=== PATIENT | female | born 1975 | race Two or more races ===

== ENCOUNTER 2025-06-29 16:14 | Emergency (ER) | payer OTHER ==
[~2025-06-29] VITALS: Ht 160 cm; Wt 71.7 kg
[2025-06-29 17:47] VITALS: BP 118/79; O2SAT 99
[2025-06-29] MEDS ORDERED: CEFTRIAXONE SODIUM 1,000 MG VIAL IM ONE (18:30)
[2025-06-29] MEDS ORDERED: CETIRIZINE HCL 5 MG/5 ML ML PO ONE (18:30)
[2025-06-29] MEDS ORDERED: CEFTRIAXONE SODIUM 1,000 MG VIAL ONE (19:12)
[2025-06-29] MEDS ORDERED: CETIRIZINE HCL 5MG/5ML BLIST.PACK PO ONE (19:12)
[2025-06-29 19:34] LABS: BASO % 0.7 % (0.1-1.2); EOS # 0.01 (0.04-0.54); EOS % 0.2 % (0.7-7.0); LYMPH # 1.65 (1.18-3.74); LYMPH % 38.5 % (19.3-53.1); MEAN PLATELET VOLUME 10.10 fl (9.4-12.4); MONO # 0.64 (0.24-0.82); NEUT # 1.95 (1.56-6.13); NEUT % 45.5 % (34.0-71.1); RED CELL DISTRIBUTION WIDTH 13.5 % (11.6-14.4)
[2025-06-29] MEDS ORDERED: PEPCID AC20 MG PO (19:49)
[2025-06-29] MEDS ORDERED: OSEL75CA PO (19:49)
[2025-06-29 19:54] LABS: COVID-19 AG NEGATIVE (NEGATIVE)
[2025-06-29 19:55] LABS: MONO % 14.9 % (4.7-12.5)
== END 2025-06-29 20:35 | disposition home or self-care (01) ==
LOC: ER 16:15
PROVIDERS: General Practice
DX: J10.1 Influenza due to other identified influenza virus with other respiratory manifestations (principal); R09.1 Pleurisy; J02.8 Acute pharyngitis due to other specified organisms; Z20.822 Contact with and (suspected) exposure to COVID-19
CPT/HCPCS: 96365; 99282; J0696